=== PATIENT | male | born 1995 | race Caucasian/White ===

== ENCOUNTER → 2022-07-30 | Outpatient (CLI) | payer OTHER | END | disposition home or self-care (01) | LOC: RADMN 08:39 | PROVIDERS: ATTEND Family Medicine | DX: S83.222A Peripheral tear of medial meniscus, current injury, left knee, initial encounter (principal); S83.282A Other tear of lateral meniscus, current injury, left knee, initial encounter; S80.02XA Contusion of left knee, initial encounter; S83.412A Sprain of medial collateral ligament of left knee, initial encounter; S83.8X2A Sprain of other specified parts of left knee, initial encounter; M76.892 Other specified enthesopathies of left lower limb, excluding foot; M25.462 Effusion, left knee; S81.012A Laceration without foreign body, left knee, initial encounter; X58.XXXA Exposure to other specified factors, initial encounter; Y93.89 Activity, other specified; Y92.89 Other specified places as the place of occurrence of the external cause; Y99.8 Other external cause status; M23.90 Unspecified internal derangement of unspecified knee | CPT/HCPCS: 73721 ==